=== PATIENT | female | born 1970 | race Asian ===

== ENCOUNTER → 2024-09-07 | Outpatient (CLI) | payer BC, SELFPAY ==
[2024-09-07 09:19] LABS: Collection Type, Urine Clean Catch; Squamous Epithelial Cell,Urine 0 /hpf (0-5); WBC,Urine 0 /hpf (0-5)
[2024-09-07 09:38] LABS: Basophils % (Auto) 1 % (0-2.5); Eosinophils % (Auto) 1 % (0-10); Hematocrit 43.6 % (36.0-46.0); Hemoglobin 14.2 g/dL (12.0-16.0); Immature Granulocytes % (Auto) 0 % (0-0); Immature Granulocytes Auto 0.01 Thou/mm3 (0.00-0.00); Lymphocytes # (Auto) 1.7 Thou/mm3 (1.0-4.8); Lymphocytes % (Auto) 33 % (10-50); Mean Corpuscular HGB Conc 32.6 g/dl (31.0-37.0); Mean Corpuscular Hemoglobin 29.1 pg (25.0-35.0); Mean Corpuscular Volume 89 fL (80-100); Monocytes # (Auto) 0.3 Thou/mm3 (0.0-0.8); Monocytes % (Auto) 6 % (0-12); Neutrophils # (Auto) 2.9 Thou/mm3 (1.8-7.7); Neutrophils % (Auto) 59 % (37-80); Nucleated Red Blood Cell % 0 /100 WBC (0); Platelet Count 188 Thou/mm3 (140-440); RDW Standard Deviation 39.8 fL (36.4-46.3); Red Blood Count 4.88 Miln/mm3 (4.00-5.20)
[2024-09-07 09:52] LABS: Bilirubin,Urine Negative (Negative); Blood,Urine Negative (Negative); Clarity,Urine Clear (Clear/Hazy); Color,Urine Lt-Yellow (Lt Yel-Yel); Culture Indicated,Urine Not Indicated; Glucose, Urine Negative (Negative); Ketones,Urine Negative (Negative); Leukocyte Esterase,Urine Negative (Negative); Nitrite,Urine Negative (Negative); Protein,Urine Negative (Neg - Trace); RBC,Urine 1 /hpf (0-3); Specific Gravity,Urine 1.008 (1.001-1.035); Urobilinogen,Urine Negative mg/dL (0.0-1.0)
[2024-09-07 10:01] LABS: Glucose Estimated Average 131 mg/dL (80-131); Hemoglobin A1C 6.2 % Hgb (4.8-6.0)
[2024-09-07 10:07] LABS: Vitamin B12 531 pg/mL (211-911); Vitamin D 25 Hydroxy Total 51.9 ng/mL (7.3-40.2)
[2024-09-07 10:27] LABS: Alanine Aminotransferase 9 U/L (10-49); Albumin, Serum 4.9 gm/dL (3.5-5.0); Albumin/Globulin Ratio 1.8 (1.2-2.2); Alkaline Phosphatase 85 U/L (46-116); Anion Gap 3 (7-16); Aspartate Amino Transferase 18 U/L (0-34); BUN/Creatinine Ratio 14 Ratio (12-20); Bilirubin,Total 1.1 mg/dL (0.3-1.2); Blood Urea Nitrogen 10 mg/dL (9-23); Calcium 9.8 mg/dL (8.3-10.6); Calcium (Corrected) 9.8 mg/dL (8.5-10.1); Carbon Dioxide 29.6 mMol/L (20.0-31.0); Cardiac Risk Estimate 3.7 RATIO (3.7-5.6); Chloride 105 mMol/L (98-107); Cholesterol 249 mg/dL (132-200); Creatinine (Component) 0.7 mg/dL (0.6-1.3); Globulin 2.7 gm/dL (2.3-3.5); Glucose 121 mg/dL (74-106); HDL Cholesterol 68 mg/dL (40-60); LDL Cholesterol,Calculated 159 mg/dL (0-130); Osmolality,Calculated 275 (275-295); Potassium 4.4 mMol/L (3.4-5.1); Sodium 138 mMol/L (136-145); Thyroid Stimulating Hormone 2.42 uIU/mL (0.55-4.78); Total Protein 7.6 gm/dL (5.7-8.2); Triglycerides 108 mg/dL (30-150); eGFR > 60 See Note
== END | disposition home or self-care (01) ==
LOC: COPL 08:49
PROVIDERS: PCP Family Medicine; Referring Provider Physician Assistant; Visit Provider Physician Assistant
DX: Z00.00 Encounter for general adult medical examination without abnormal findings (principal); E55.9 Vitamin D deficiency, unspecified; E78.5 Hyperlipidemia, unspecified; R73.01 Impaired fasting glucose
CPT/HCPCS: 36415; 80053; 80061; 81001; 82306; 82607; 83036; 84443; 85025

== ENCOUNTER → 2024-10-25 | Outpatient (CLI) | payer BC, SELFPAY ==
--- NOTE | 2024-10-25 10:30 | XR_ITS ---
Examination: Screening digital mammography, bilateral Computer aided detection 3-D breast Tomosynthesis, bilateral Date and time of exam: October 25, 2024 1010 hours Compared to mammograms dating to November 09, 2018 Indication: Screening Technique: Nonmagnified MLO, CC views of the breasts to been obtained, reconstructed from 3-D Tomosynthesis images. R2 computer aided detection program utilized for evaluation of suspicious masses and/or abnormal calcifications. 3-D Tomosynthesis images obtained. Findings: The breasts are heterogeneously dense, which may obscure small masses Breast biopsy marker 12:00 position right breast posterior depth 12 mm focal asymmetry upper outer right breast posterior depth Breast biopsy marker retroareolar region left breast Impression: BI-RADS Category 0: Incomplete: Need additional imaging evaluation Recommend follow-up spot tomographic views of 12 mm focal asymmetry upper outer right breast posterior depth as well as bilateral breast sonography to complete the workup
== END | disposition home or self-care (01) ==
LOC: CDIM 09:57
PROVIDERS: PCP Family Medicine; Referring Provider Physician Assistant; Visit Provider Physician Assistant
DX: Z12.31 Encounter for screening mammogram for malignant neoplasm of breast (principal); R92.333 Mammographic heterogeneous density, bilateral breasts
CPT/HCPCS: 77063; 77067

== ENCOUNTER → 2024-12-26 | Outpatient (CLI) | payer BC, SELFPAY ==
[2024-12-26 10:14] LABS: Glucose Estimated Average 143 mg/dL (80-131); Hemoglobin A1C 6.6 % Hgb (4.8-6.0)
[2024-12-26 10:20] LABS: Alanine Aminotransferase 14 U/L (10-49); Albumin, Serum 4.7 gm/dL (3.5-5.0); Albumin/Globulin Ratio 2.0 (1.2-2.2); Alkaline Phosphatase 75 U/L (46-116); Anion Gap 6 (7-16); Aspartate Amino Transferase 19 U/L (0-34); BUN/Creatinine Ratio 13 Ratio (12-20); Bilirubin,Total 1.1 mg/dL (0.3-1.2); Blood Urea Nitrogen 9 mg/dL (9-23); Calcium 10.4 mg/dL (8.3-10.6); Calcium (Corrected) 10.4 mg/dL (8.5-10.1); Carbon Dioxide 29.6 mMol/L (20.0-31.0); Cardiac Risk Estimate 2.2 RATIO (3.7-5.6); Chloride 104 mMol/L (98-107); Cholesterol 157 mg/dL (132-200); Creatinine (Component) 0.7 mg/dL (0.6-1.3); Globulin 2.4 gm/dL (2.3-3.5); Glucose 113 mg/dL (74-106); HDL Cholesterol 71 mg/dL (40-60); LDL Cholesterol,Calculated 67 mg/dL (0-130); Osmolality,Calculated 279 (275-295); Potassium 4.1 mMol/L (3.4-5.1); Sodium 140 mMol/L (136-145); Total Protein 7.1 gm/dL (5.7-8.2); Triglycerides 95 mg/dL (30-150); eGFR > 60 See Note
== END | disposition home or self-care (01) ==
LOC: COPL 09:11
PROVIDERS: PCP Physician Assistant; Referring Provider Physician Assistant; Visit Provider Physician Assistant
DX: R73.01 Impaired fasting glucose (principal); E78.5 Hyperlipidemia, unspecified
CPT/HCPCS: 36415; 80053; 80061; 83036

== ENCOUNTER → 2024-12-27 | Outpatient (CLI) | payer BC, SELFPAY ==
--- NOTE | 2024-12-27 10:00 | XR_ITS ---
Examination: Breast ultrasound complete, bilateral Date and time of exam: December 27, 2024 1001 hours INDICATIONS: Mammogram October 17, 2024 12 mm focal asymmetry upper outer right breast Technique: Real-time grayscale ultrasonographic imaging bilateral breasts, including all 4 quadrants as well as nipple retroareolar and axillary regions. Findings: Sonographic images right breast 11:00 nodule lobular margins 5 x 5 mm Sonographic images left breast 12:00 nodule lobular margins with breast biopsy marker 7 x 8 mm IMPRESSION: BI-RADS Category 3: Probably benign findings One additional 6 month bilateral breast sonography follow-up is needed to document stability of bilateral nodules described above
--- NOTE | 2024-12-27 11:15 | XR_ITS ---
Examination: Diagnostic digital mammography, unilateral, right Computer aided detection 3-D breast Tomosynthesis, unilateral Date and time of exam: December 27, 2024 1023 hours INDICATIONS: Mammogram October 25, 2024 12 mm focal asymmetry upper outer right breast posterior depth Technique: Nonmagnified MLO, CC views of the right breast have been obtained, reconstructed from 3-D Tomosynthesis images. R2 computer aided detection program utilized for evaluation of suspicious masses and/or abnormal calcifications. 3-D Tomosynthesis images obtained. Findings: The breast is heterogeneously dense, which may obscure small masses 5 mm circumscribed nodule 11:00 position right breast Impression: BI-RADS category 3: Probably benign findings One additional 6 month right mammogram follow-up recommended to document stability of nodule described above
== END | disposition home or self-care (01) ==
LOC: CDIM 09:32
PROVIDERS: PCP Family Medicine; Referring Provider Physician Assistant; Visit Provider Physician Assistant
DX: R92.331 Mammographic heterogeneous density, right breast (principal); N63.11 Unspecified lump in the right breast, upper outer quadrant; N63.25 Unspecified lump in the left breast, overlapping quadrants
CPT/HCPCS: 76641; 77061; 77065; G0279

== ENCOUNTER → 2025-04-05 | Outpatient (CLI) | payer BC, SELFPAY ==
[2025-04-05 10:36] LABS: Glucose Estimated Average 134 mg/dL (80-131); Hemoglobin A1C 6.3 % Hgb (4.8-6.0)
[2025-04-05 10:43] LABS: Alanine Aminotransferase 14 U/L (10-49); Albumin, Serum 5.2 gm/dL (3.5-5.0); Albumin/Globulin Ratio 2.5 (1.2-2.2); Alkaline Phosphatase 73 U/L (46-116); Anion Gap 8 (7-16); Aspartate Amino Transferase 21 U/L (0-34); BUN/Creatinine Ratio 18 Ratio (12-20); Bilirubin,Total 1.2 mg/dL (0.3-1.2); Blood Urea Nitrogen 11 mg/dL (9-23); Calcium 9.9 mg/dL (8.3-10.6); Calcium (Corrected) 9.9 mg/dL (8.5-10.1); Carbon Dioxide 30.4 mMol/L (20.0-31.0); Cardiac Risk Estimate 2.1 RATIO (3.7-5.6); Chloride 105 mMol/L (98-107); Cholesterol 149 mg/dL (132-200); Creatinine (Component) 0.6 mg/dL (0.6-1.3); Globulin 2.1 gm/dL (2.3-3.5); Glucose 109 mg/dL (74-106); HDL Cholesterol 71 mg/dL (40-60); LDL Cholesterol,Calculated 67 mg/dL (0-130); Osmolality,Calculated 285 (275-295); Potassium 4.8 mMol/L (3.4-5.1); Sodium 143 mMol/L (136-145); Total Protein 7.3 gm/dL (5.7-8.2); Triglycerides 56 mg/dL (30-150); eGFR > 60 See Note
== END | disposition home or self-care (01) ==
LOC: COPL 09:00
PROVIDERS: PCP Family Medicine; Referring Provider Physician Assistant; Visit Provider Physician Assistant
DX: E78.5 Hyperlipidemia, unspecified (principal); E11.9 Type 2 diabetes mellitus without complications
CPT/HCPCS: 36415; 80053; 80061; 83036